=== PATIENT | female | born 1950 ===

== ENCOUNTER → 2018-05-29 | Outpatient (CLI) | payer MEDICARE, BC ==
[~2018-05-29] MED LIST: QUET25TA37; TRAM-411
[2018-05-29 11:58] LABS: Urine WBC None Seen /hpf (0 - 5)
[2018-05-29 12:36] LABS: Basophils # (auto) 0 uL; Basophils % (auto) 0.5 % (0.0-2.0); Eosinophils # (auto) 0.2 uL; Eosinophils % (auto) 3.8 % (0.0-7.0); Hematocrit 41.4 % (36.0-46.0); Hemoglobin 14.4 g/dL (12.2-16.2); Lymphocytes # (auto) 1.1 uL; Lymphocytes % (auto) 21.7 % (10.0-50.0); Mean Corpuscular Hemoglobin 32.9 pg (28.0-32.0); Mean Corpuscular Hgb Conc. 34.7 g/dL (32.0-36.0); Mean Corpuscular Volume 94.7 fL (80.0-100.0); Monocytes # (auto) 0.4 uL; Monocytes % (auto) 7.5 % (0.0-12.0); Neutrophils # (auto) 3.5 uL; Neutrophils % (auto) 66.5 % (37.0-80.0); Nucleated Red Blood Cells % 0.1 %; Platelet Count (auto) 183 10^3/uL (140-450); Red Blood Cells 4.37 10^6/uL (4.0-5.20); Red Cell Distribution Width 13.2 % (11.8-14.3); White Blood Cell 5.2 10^3/uL (4.4-10.8)
[2018-05-29 12:45] LABS: INR 0.93 (0.9-1.15)
[2018-05-29 13:01] LABS: Urine Bacteria NONE SEEN /hpf (None Seen); Urine Blood Negative /uL (Negative); Urine Specific Gravity 1.009 (1.001-1.035)
[2018-05-29 13:21] LABS: Albumin 3.6 g/dL (3.4-5.0); BUN/Creatinine Ratio 29.1; Bilirubin, Total 0.4 mg/dL (0.2-1.0); Calcium 9.1 mg/dL (8.5-10.1); Potassium 3.9 mmol/L (3.5-5.1); Total Protein 7.5 g/dL (6.4-8.2)
== END | disposition home or self-care (01) ==
LOC: LAB 11:06
PROVIDERS: ATTEND Orthopaedic Surgery
DX: G56.01 Carpal tunnel syndrome, right upper limb (principal); Z79.01 Long term (current) use of anticoagulants
CPT/HCPCS: 36415; 80053; 81001; 85025; 85610; 85730

== ENCOUNTER 2024-08-10 20:18 | Inpatient (IN) | payer BC, MEDICAID, MEDICARE ==
[~2024-08-10] VITALS: Ht 172.7 cm; Wt 61.0 kg
[~2024-08-10 20:18] MED LIST changes: +AZEL15GE EX; +LOSA100T33 PO; +METR0.7517 EX; +TEMA30CA PO
--- NOTE | 2024-08-10 20:28 | ED.PDOC ---
GI ASSESSMENT HPI Comments 74-year-old female brought in by EMS presents with a chief complaint of abdominal pain x onset 2 hours ago. Patient states that she went out of eat with her friends and had chicken wings, then developed abdominal pain, nausea, and vomiting. Patient was given 8mg of Zofran en route by EMS and is not actively vomiting. Patient reports her pain a 8/10 and cramping in nature. No blood in emesis. Patient's past medical history of solitary kidney, left kidney removed in her 20s. Patient has history of but or rupture status post surgical treatment, must self catheterize. Time Seen by MD: 20:19 Primary Care Provider: BRENDEN Gibson Notes: Medications, Allergies Allergies: Coded Allergies: Penicillin V (Verified Allergy, Unknown, 08/10/24) Sulfa Drugs (Verified Allergy, Unknown, 08/10/24) Tetracycline (Verified Allergy, Unknown, 08/10/24) Home Meds Reported Medications Quetiapine Fumerate (Seroquel) 25 Mg Tab, DAILY 03/28/12 Tramadol Hcl (Rybix Odt) 50 Mg Tab, DAILY 03/28/12 Information Source: Patient, Emergency Med Personnel Mode of Arrival: EMS Timing: Hours Duration: Since onset Prehospital treatment: None Quality: Cramping Vomitus: Bilious, Food Particles Stool: Normal Severity: Moderate Recent: Possible spoiled food Recent Hx of: None Pain Location: Epigastric Modifying Factors: Food Associated sign and symptoms: Nausea, Vomiting, Abdominal Pain Vital Signs Vital Signs Date Time Temp Pulse Resp B/P (MAP) Pulse Ox O2 Delivery O2 Flow Rate FiO2 08/11/24 00:05 73 12 142/88 08/11/24 00:00 100 08/10/24 23:26 98.3 98.3 Physical Exam General: Awake, alert and oriented. No acute distress. Skin: Skin in warm, dry and intact. Appropriate color for ethnicity. Nailbeds pink with no cyanosis. HEENT: The head is normocephalic and atraumatic. Conjunctivae are clear without exudates or hemorrhage. Sclera is non-icteric. EOM are intact. No signs of nystagmus. Eyelids are normal in appearance without swelling or lesions. Oral mucosa is pink and moist Neck: The neck is supple with normal range of motion. No JVD. Cardiac: Heart rate and rhythm are normal. No murmurs, gallops, or rubs are auscultated. Respiratory: No signs of respiratory distress. Lung sounds are clear in all lobes bilaterally without rales, ronchi, or wheezes. Abdominal: Abdomen is soft, with generalized tenderness, no guarding, rebound or rigidity. Bowel sounds are present and normoactive in all four quadrants. Extremities: Upper and lower extremities are atraumatic in appearance without deformity or edema. Neurological: The patient is awake, alert and oriented to person, place, and time with normal speech. Speech is clear. There is no facial asymmetry. Psychiatric: Appropriate mood and affect. Good judgement and insight. No visual or auditory hallucinations. Review of Systems: REVIEW OF SYSTEMS: No fever, no chills, or fatigue HEENT: No sore throat, earache, or congestion. No neck pain. Cardiac: No chest pain. No palpitations. Lungs: No shortness of breath or cough. GI: Positive for abdominal pain. Positive for nausea, vomiting, diarrhea. No blood in vomitus or stool. : No dysuria, frequency, or urgency. No hematuria. Musculoskeletal: No joint pain or swelling or edema. Skin: No rash or itching. Neuro: No headache, dizziness, weakness Past Medical History PAST MEDICAL HISTORY: High Lipids, HTN, Thyroid Family History Family History: Reviewed,noncontributory to illness, No family hx of Cancer, No family hx of Heart leander Social History Smoker: Non-Smoker, Quit Greater Than 1 Year Alcohol: Heavy Drugs: Denies Drug Use Lives In: Home EKG EKG : Pulse Rate (adult): 48 [place]: Normal Cardiac Rhythm: SB Block: None Hypertrophy: None ST: Normal Was a procedure done? Was a procedure done?: No GI differential Dx Differential Diagnosis: Other Other Differential Diagnosis Differential diagnoses considered include: Abdominal aortic aneurysm, OH, esophageal rupture, intestinal obstruction, mesenteric ischemia, perforated viscus or solid organ rupture, CHF with hepatomegaly, pneumonia, abscess, appendicitis, biliary disease, diverticulitis, gastritis, gastroenteritis, hepatitis, hernia, inflammatory bowel disease, pancreatitis, peptic ulcer disease, ureteral colic, constipation, GERD, irritable syndrome, abdominal wall pain, nonspecific abdominal pain, herpes zoster. X-Ray, Labs, Meds, VS Vital Signs Date Time Temp Pulse Resp B/P (MAP) Pulse Ox O2 Delivery O2 Flow Rate FiO2 08/11/24 00:05 73 12 142/88 08/11/24 00:00 73 12 142/88 (106) 100 08/10/24 23:35 59 12 158/79 08/10/24 23:26 98.3 59 29 149/80 (103) 99 98.3 08/10/24 20:33 98.2 52 20 107/56 (73) 98 08/10/24 20:28 48 08/10/24 20:20 48 Lab Test 08/11/24 00:30 08/10/24 23:04 08/10/24 21:04 08/10/24 21:00 Range/Units Urine Color Colorless Yellow Urine Clarity Turbid H Clear Urine pH 6.0 5.0-9.0 Urine Specific [place] 1.009 1.001-1.035 Urine Protein Trace H Negative Urine Ketones Trace Negative Urine Blood Negative Negative /uL Urine Nitrite 2+ H Negative Urine Bilirubin Negative Negative Urine Urobilinogen Normal Negative mg/dL Urine Leukocyte Esterase 1+ Negative /uL Urine RBC 1 0 - 4 /hpf Urine WBC 43 0 - 5 /hpf Urine Squamous Epithelial Cells Many <5 /hpf Urine Amorphous Crystals Few None Seen /hpf Urine Bacteria Few H None Seen /hpf Urine Glucose Normal Normal mg/dL Lactic Acid Level 6.4 *H 6.7 *H 0.4-2.0 mmol/L White Blood Count 7.9 4.4-10.8 10^3/uL Red Blood Count 4.81 4.0-5.20 10^6/uL Hemoglobin 15.8 12.2-16.2 g/dL Hematocrit 46.8 H 36.0-46.0 % Mean Corpuscular Volume 97.4 80.0-100.0 fL Mean Corpuscular Hemoglobin 32.8 H 28.0-32.0 pg Mean Corpuscular Hemoglobin Concent 33.7 32.0-36.0 g/dL Red Cell Distribution Width 13.4 11.8-14.3 % Platelet Count 176 140-450 10^3/uL Mean Platelet Volume 8.0 6.9-10.8 fL Neutrophils (%) (Auto) 70.6 37.0-80.0 % Lymphocytes (%) (Auto) 23.4 10.0-50.0 % Monocytes (%) (Auto) 3.9 0.0-12.0 % Eosinophils (%) (Auto) 1.6 0.0-7.0 % Basophils (%) (Auto) 0.5 0.0-2.0 % Neutrophils # (Auto) 5.6 1.6-8.6 10 ^3/uL Lymphocytes # (Auto) 1.9 0.4-5.4 10 ^3/uL Monocytes # (Auto) 0.3 0-1.3 10 ^3/uL Eosinophils # (Auto) 0.1 0-0.8 10 ^3/uL Basophils # (Auto) 0 0-0.2 10 ^3/uL Nucleated Red Blood Cells 0.2 % Sodium Level 143 136-145 mmol/L Potassium Level 3.3 L 3.5-5.1 mmol/L Chloride Level 107 98-107 mmol/L Carbon Dioxide Level 18 L 20-31 mmol/L Anion Gap 18 H 5-15 Blood Urea Nitrogen 7 L 9-23 mg/dL Creatinine 0.74 0.550-1.02 mg/dL Glomerular Filtration Rate Calc 85 >90 mL/min BUN/Creatinine Ratio 9.5 L 10.0-20.0 Serum Glucose 96 74-106 mg/dL Calcium Level 10.3 8.7-10.4 mg/dL Total Bilirubin 0.5 0.2-1.0 mg/dL Aspartate Amino Transferase (AST) 22 13-40 U/L Alanine Aminotransferase (ALT) 14 7-40 U/L Alkaline Phosphatase 63 46-116 U/L Total Protein 7.2 5.7-8.2 g/dL Albumin 4.6 3.2-4.8 g/dL Lipase 43 12-53 U/L Current Medications Medications (Trade) Dose Ordered Sig/Tay Route Start Time Stop Time Status Last Admin Morphine Sulfate 4 mg ONCE ONCE IV 08/10/24 20:30 08/10/24 20:31 DC 08/10/24 23:35 Sodium Chloride 1,000 ml @ 1,000 mls/hr Q1H ONCE IV 08/10/24 22:45 08/10/24 23:44 DC 08/10/24 23:35 Potassium Chloride 100 ml @ 50 mls/hr ONCE ONCE IV 08/10/24 22:45 08/11/24 00:44 DC 08/11/24 01:14 Metoclopramide HCl (Reglan Injection) 5 mg ONCE ONCE IV 08/10/24 23:30 08/10/24 23:31 DC 08/10/24 23:34 Diphenhydramine HCl (Benadryl Injection) 25 mg ONCE ONCE IV 08/10/24 23:30 08/10/24 23:31 DC 08/10/24 23:35 Sodium Chloride 1,000 ml @ 1,000 mls/hr Q1H ONCE IV 08/11/24 00:15 08/11/24 01:14 DC 08/11/24 01:14 Time of 1ST Reevaluation: 20:49 Reevaluation 1ST: Unchanged Time of 2ND Reevaluation: 00:16 (Pain has improved, however, 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 ) Reevaluation 2ND: Improved Patient Education/Counseling: Diagnosis, Treatment, Prognosis Family Education/Counseling: Diagnosis, Treatment, Prognosis, Other (Patient's at bedside) Additional Information The following tests were ordered, and results were reviewed by me: (labs, EKGS, xrays, etc) Additional information was gathered from interviewing the following independent historians: EMS gave initial report. I reviewed and agreed with the following test results read by other providers: (xray, CT, US) I discussed treatments and results with medical personnel and: (consultants, fam, etc) Departure 1 Departure Time of Disposition: 04:17 Impression: Primary Impression: Abdominal pain Additional Impressions: Nausea vomiting and diarrhea Small bowel obstruction Disposition: ADMITTED INPATIENT Condition: Stable Comments Number & Complexity of Problems Addressed Patient presented with abdominal pain, nausea, vomiting, diarrhea with a history of solitary kidney. There was concern for compromised renal function, dehydration, considered no IV contrast given solitary kidney. Repeat CT scan with IV contrast was ordered due to elevated lactic acid, continued abdominal tenderness. Small-bowel obstruction observed, NG tube placed. Extensive evaluation was performed to identify or rule out: All perforation, bowel obstruction, ischemic bowel, acute coronary syndrome, appendicitis, cholecystitis, acute pancreatitis. Amount and/or Complexity of Data to be Reviewed/Analyzed Tests reviewed: See labs and imaging Documents reviewed: Previous records available for review Independent historian: EMS, patient's at bedside Independent interpretation of tests: Agree with radiologist's interpretation of CT scan, EKG Discussion of management or test interpretation with external physician/other qualified health career services officer: N/A Risk of Complications and/or Morbidity or Mortality of Patient Management Patient was at high risk of morbidity from additional diagnostic testing or treatment Decision regarding emergency major surgery: There was concern for acute surgical abdomen Decision was made to hospitalize the patient for ongoing inpatient care. Parenteral controlled substances-IV morphine Critical Care Note Critical Care Time?: No Stability Stability form required: No I personally scribed for VIVIANE HEWITT MD ([email or web address]) on 08/10/24 at 20:28. Electronically submitted by Gerardo Garcia ([email or web address]). I personally scribed for VIVIANE HEWITT MD ([email or web address]) on 08/11/24 at 00:16. Electronically submitted by Gerardo Garcia ([email or web address]). VIVIANE HEWITT MD Aug 10, 2024 20:28
[2024-08-10 21:18] LABS: Basophils # (auto) 0 10 ^3/uL (0-0.2); Basophils % (auto) 0.5 % (0.0-2.0); Eosinophils # (auto) 0.1 10 ^3/uL (0-0.8); Eosinophils % (auto) 1.6 % (0.0-7.0); Hematocrit 46.8 % (36.0-46.0); Hemoglobin 15.8 g/dL (12.2-16.2); Lymphocytes # (auto) 1.9 10 ^3/uL (0.4-5.4); Lymphocytes % (auto) 23.4 % (10.0-50.0); Mean Corpuscular Hemoglobin 32.8 pg (28.0-32.0); Mean Corpuscular Hgb Conc. 33.7 g/dL (32.0-36.0); Mean Corpuscular Volume 97.4 fL (80.0-100.0); Monocytes # (auto) 0.3 10 ^3/uL (0-1.3); Monocytes % (auto) 3.9 % (0.0-12.0); Neutrophils # (auto) 5.6 10 ^3/uL (1.6-8.6); Neutrophils % (auto) 70.6 % (37.0-80.0); Nucleated Red Blood Cells % 0.2 %; Platelet Count (auto) 176 10^3/uL (140-450); Red Blood Cells 4.81 10^6/uL (4.0-5.20); Red Cell Distribution Width 13.4 % (11.8-14.3); White Blood Cell 7.9 10^3/uL (4.4-10.8)
[2024-08-10 21:32] LABS: Alanine Aminotransferase 14 U/L (7-40); Albumin 4.6 g/dL (3.2-4.8); Alkaline Phosphatase 63 U/L (46-116); Anion Gap 18 (5-15); Aspartate Aminotransferase 22 U/L (13-40); BUN/Creatinine Ratio 9.5 (10.0-20.0); Bilirubin, Total 0.5 mg/dL (0.2-1.0); Calcium 10.3 mg/dL (8.7-10.4); Glucose 96 mg/dL (74-106); Lipase 43 U/L (12-53); Sodium 143 mmol/L (136-145); Total Protein 7.2 g/dL (5.7-8.2)
[2024-08-10 21:34] LABS: Lactic Acid w/Reflex 6.7 mmol/L (0.4-2.0)
[2024-08-10 21:34] LABS: Blood Urea Nitrogen 7 mg/dL (9-23); Carbon Dioxide 18 mmol/L (20-31); Chloride 107 mmol/L (98-107); Potassium 3.3 mmol/L (3.5-5.1)
--- NOTE | 2024-08-10 22:14 | DVH ---
Exam: CT CT AB PEL WO CON-NO ORAL OR IV History: Abdominal pain, nausea, vomiting, diarrhea Comparison Study: None available at time of dictation. TECHNIQUE: Multidetector CT of the abdomen was performed from lung bases to pubic symphysis. Imaging was performed without IV contrast. Axial, coronal and sagittal multiplanar reformats were obtained fr om the axial data set by the technologist. Radiation Dose Information: CT Dose: CTDI volume is 11.48 mGy. Dose-length product is 578.59 mGy*cm FINDINGS: Evaluation of solid organs is limited due to lack of intravenous contrast use. Findings: Lung Bases: No acute or significant lung base finding. Normal heart size. No pleural or pericardial effusion. Liver: The liver is normal in size. No focal lesions. Gallbladder and Biliary Tree: Unremarkable Spleen: Unremarkable Pancreas: The pancreas is grossly normal in appearance. Adrenal Glands: Unremarkable Kidneys: Only right kidney is visualized. Left kidney is not visualized and there are no surgical cli ps seen. Bladder: Grossly unremarkable for degree of distention. Bowel: The stomach is grossly normal in appearance. Small bowel and colon are normal in caliber and d istribution. The appendix is not visualized; however, no secondary findings of acute appendicitis id entified. Ascites: Absent Lymphadenopathy: No mesenteric, retroperitoneal or periportal lymphadenopathy. Abdominal Wall and Mesentery: Unremarkable. Vasculature: The visualized abdominal aorta is normal in size and caliber. Evaluation of abdominal a nd pelvic vessels is limited due to lack of intravenous contrast. Pelvic Organs: Unremarkable Musculoskeletal: No aggressive focal bony lesions, acute fractures or dislocation. Soft tissues: Unremarkable IMPRESSION: 1. No calcifications are noted in the gallbladder. 2. Left kidney is not visualized and there are no surgical clips to suggest surgical removal. Radiation optimization: All CT scans at this facility use at least one of these dose optimization te chniques: automated exposure control mA and/or kV adjustment per patient size (includes targeted exa ms where dose is matched to clinical indication) or iterative reconstruction.
[2024-08-10] MEDS: METOCLOPRAMIDE HCL 5MG/ml INJ 2ml VIAL IV ONE (23:34)
[2024-08-10] MEDS: MORPHINE SULFATE 4 MG/ML SYR/VIAL IV ONE (23:35)
[2024-08-10] MEDS: SODIUM CHLORIDE 0.9% 1,000 ML IV ONE (23:35)
[2024-08-10] MEDS: diphenhdrAMINE HCL 50 MG/1 ML VL IV ONE (23:35)
[2024-08-11] MEDS ORDERED: ACETAMINOPHEN 325 MG TAB PO PRN (01:00)
[2024-08-11] MEDS ORDERED: HYDROcodone-ACET 5/325MG TAB PO PRN (01:00)
[2024-08-11] MEDS: SODIUM CHLORIDE 0.9% 1,000 ML IV ONE (01:14)
[2024-08-11] MEDS: POTASSIUM CHL 20MEQ/100ML 100 ML IV ONE (01:14)
[2024-08-11] MEDS: IOHEXOL 300 MG/ML 100ML BOTTLE IJ ONE (01:24)
--- NOTE | 2024-08-11 01:28 | DVH ---
Exam: CT CT AB PEL WITH IV CON ONLY History: CT angiogram, rule out ischemic bowel COMPARISON: CT CT AB PEL WO CON-NO ORAL OR IV on DOS: 08/10/24 Technique: Multidetector spiral CT of the abdomen and pelvis was performed from lung bases to pubic s ymphysis. Intravenous contrast was administered during this examination. Portal venous imaging was obtained. Axial, coronal and sagittal multiplanar reformats were performed by the technologist on a separate workstation. Radiation Dose : 1. Abdomen/Pelvis: CTDIvol 11.7 mGy, DLP 1293.86 mGy*cm. CONTRAST: Type of contrast: Omnipaque 300 Contrast injected: 100 ml Findings: Lung Bases: No acute or significant lung base finding. Normal heart size. No pleural or pericardial effusion. Liver: The liver is normal in size. No focal lesions. Normal hepatic vascular enhancement. Gallbladder and Biliary Tree: Unremarkable Spleen: Unremarkable Pancreas: The pancreas is normal in appearance without focal lesions or abnormal enhancement. Adrenal Glands: Unremarkable Kidneys: Unremarkable right kidney. No hydronephrosis. 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 Bladder: Collapsed surrounding Monsivais catheter. Bowel: The stomach is grossly normal in appearance. Multiple abnormally dilated loops of bowel are se en throughout the abdomen with probable transition point in the lower midline pelvis, suggestive of s mall-bowel obstruction. No pneumatosis or portal venous gas. The appendix is not visualized; however, no secondary findings of acute appendicitis identified. Ascites: Absent Lymphadenopathy: No mesenteric, retroperitoneal or periportal lymphadenopathy. Abdominal Wall and Mesentery: Unremarkable. Vasculature: The visualized abdominal aorta is normal in size and caliber. Abdominal and pelvic vess els demonstrate normal enhancement. Pelvic Organs: Urinary bladder is collapsed surrounding Monsivais catheter. Musculoskeletal: No aggressive focal bony lesions, acute fractures or dislocation. IMPRESSION: 1. Small-bowel obstruction with probable transition point in the lower midline pelvis. No drainable fluid collection. No free air. No evidence of bowel ischemia. Radiation optimization: All CT scans at this facility use at least one of these dose optimization melvi hniques: automated exposure control mA and/or kV adjustment per patient size (includes targeted exam s where dose is matched to clinical indication) or iterative reconstruction.
[2024-08-11 02:47] LABS: Urine Amorphous Crystal FEW /hpf (None Seen); Urine Bacteria FEW /hpf (None Seen); Urine Blood Negative /uL (Negative); Urine Clarity Turbid (Clear); Urine Color Colorless (Yellow); Urine Protein, UAD TRACE (Negative); Urine Specific Gravity 1.009 (1.001-1.035); Urine Urobilinogen Normal (Negative); Urine WBC 43 /hpf (0 - 5)
[2024-08-11] MEDS: levoFLOXacin 500MG 100 ML IV ONE (02:56)
--- NOTE | 2024-08-11 04:29 | DVHHP2 ---
History of Present Illness Reason for Visit: Abdominal pain History of Present Illness 74-year-old female presents for evaluation of abdominal pain. Patient reports a one day history of diffuse abdominal pain which is cramp like in nature. She states his symptoms developed shortly after eating chicken wings. She associates episodes of nausea with vomiting. Denies diarrhea. No other acute complaints reported. Past Medical History Hypertension, dyslipidemia and hypothyroid Past Surgical History Denies Family History Noncontributory Smoke: No ALCOHOL: none Drugs: None Lives: with Family Review of Systems Review of Systems Review of systems are currently negative otherwise addressed in HPI. Allergies: Coded Allergies: Penicillin V (Verified Allergy, Unknown, 08/10/24) Sulfa Drugs (Verified Allergy, Unknown, 08/10/24) Tetracycline (Verified Allergy, Unknown, 08/10/24) Medications Current Medications Medications Dose Ordered Sig/Tay Route Start Time Stop Time Status Last Admin Dose Admin Metronidazole 100 ml @ 100 mls/hr Q8HR IV 08/11/24 06:00 Acetaminophen/ Hydrocodone Bitart 1 tab Q4HP PRN PO 08/11/24 01:00 Ondansetron HCl 4 mg Q4HP PRN IV 08/11/24 01:00 Acetaminophen 650 mg Q6HP PRN PO 08/11/24 01:00 Morphine Sulfate 2 mg Q6HPRN PRN IV 08/11/24 01:00 Exam Vital Signs Vital Signs Date Time Temp Pulse Resp B/P (MAP) Pulse Ox O2 Delivery O2 Flow Rate FiO2 08/11/24 03:00 73 17 152/80 (104) 100 08/10/24 23:26 98.3 98.3 Exam Gen: 74-year-old female in mild distress Skin: Warm, dry, normal color and texture, no rash. HEENT: Normocephalic atraumatic, mucous membranes moist and pink. Neck: Cervical and supraclavicular nodes normal without enlargement, trachea is midline, thyroid gland is normal without masses. Pulmonary: Clear to auscultation and percussion bilaterally. Cardiac: Regular rate and rhythm. No murmur Abdomen: Soft, diffuse tenderness, nondistended, bowel sounds present all 4 amarjit drants, no guarding, no rigidity, no organomegaly. Extremities: No cyanosis, clubbing, no edema Neuro: Cranial nerves II through XII grossly intact, normal affect and speech, no focal motor deficits. Labs/Xrays ORDERING PHYSICIAN: VIVIANE HEWITT MD PROCEDURE(s): ABPLIV - CT AB PEL WITH IV CON ONLY REASON: CT angiogram, rule out ischemic bowel ORDER NUMBER(s): [id number], ACCESSION NUMBER(s): [id number] Exam: CT CT AB PEL WITH IV CON ONLY History: CT angiogram, rule out ischemic bowel COMPARISON: CT CT AB PEL WO CON-NO ORAL OR IV on DOS: 08/10/24 Technique: Multidetector spiral CT of the abdomen and pelvis was performed from lung bases to pubic symphysis. Intravenous contrast was administered during this examination. Portal venous imaging was obtained. Axial, coronal and sagittal multiplanar reformats were performed by the technologist on a separate workstation. Radiation Dose : 1. Abdomen/Pelvis: CTDIvol 11.7 mGy, DLP 1293.86 mGy*cm. CONTRAST: Type of contrast: Omnipaque 300 Contrast injected: 100 ml Findings: Lung Bases: No acute or significant lung base finding. Normal heart size. No pleural or pericardial effusion. Liver: The liver is normal in size. No focal lesions. Normal hepatic vascular enhancement. Gallbladder and Biliary Tree: Unremarkable Spleen: Unremarkable Pancreas: The pancreas is normal in appearance without focal lesions or abnormal enhancement. Adrenal Glands: Unremarkable Kidneys: Unremarkable right kidney. No hydronephrosis. 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 Bladder: Collapsed surrounding Monsivais catheter. Bowel: The stomach is grossly normal in appearance. Multiple abnormally dilated loops of bowel are seen throughout the abdomen with probable transition point in the lower midline pelvis, suggestive of small-bowel obstruction. No pneumatosis or portal venous gas. The appendix is not visualized; however, no secondary findings of acute appendicitis identified. Ascites: Absent Lymphadenopathy: No mesenteric, retroperitoneal or periportal lymphadenopathy. Abdominal Wall and Mesentery: Unremarkable. Vasculature: The visualized abdominal aorta is normal in size and caliber. Abdominal and pelvic vessels demonstrate normal enhancement. Pelvic Organs: Urinary bladder is collapsed surrounding Monsivais catheter. Musculoskeletal: No aggressive focal bony lesions, acute fractures or dislocation. IMPRESSION: 1. Small-bowel obstruction with probable transition point in the lower midline pelvis. No drainable fluid collection. No free air. No evidence of bowel ischemia. Radiation optimization: All CT scans at this facility use at least one of these dose optimization techniques: automated exposure control mA and/or kV adjustment per patient size (includes targeted exams where dose is matched to clinical indication) or iterative reconstruction. Labs Test 08/11/24 03:15 08/11/24 00:30 08/10/24 21:00 Range/Units Lactic Acid Level 1.6 0.4-2.0 mmol/L Urine Color Colorless Yellow Urine Clarity Turbid H Clear Urine pH 6.0 5.0-9.0 Urine Specific [place] 1.009 1.001-1.035 Urine Protein Trace H Negative Urine Ketones Trace Negative Urine Blood Negative Negative /uL Urine Nitrite 2+ H Negative Urine Bilirubin Negative Negative Urine Urobilinogen Normal Negative mg/dL Urine Leukocyte Esterase 1+ Negative /uL Urine RBC 1 0 - 4 /hpf Urine WBC 43 0 - 5 /hpf Urine Squamous Epithelial Cells Many <5 /hpf Urine Amorphous Crystals Few None Seen /hpf Urine Bacteria Few H None Seen /hpf Urine Glucose Normal Normal mg/dL White Blood Count 7.9 4.4-10.8 10^3/uL Red Blood Count 4.81 4.0-5.20 10^6/uL Hemoglobin 15.8 12.2-16.2 g/dL Hematocrit 46.8 H 36.0-46.0 % Mean Corpuscular Volume 97.4 80.0-100.0 fL Mean Corpuscular Hemoglobin 32.8 H 28.0-32.0 pg Mean Corpuscular Hemoglobin Concent 33.7 32.0-36.0 g/dL Red Cell Distribution Width 13.4 11.8-14.3 % Platelet Count 176 140-450 10^3/uL Mean Platelet Volume 8.0 6.9-10.8 fL Neutrophils (%) (Auto) 70.6 37.0-80.0 % Lymphocytes (%) (Auto) 23.4 10.0-50.0 % Monocytes (%) (Auto) 3.9 0.0-12.0 % Eosinophils (%) (Auto) 1.6 0.0-7.0 % Basophils (%) (Auto) 0.5 0.0-2.0 % Neutrophils # (Auto) 5.6 1.6-8.6 10 ^3/uL Lymphocytes # (Auto) 1.9 0.4-5.4 10 ^3/uL Monocytes # (Auto) 0.3 0-1.3 10 ^3/uL Eosinophils # (Auto) 0.1 0-0.8 10 ^3/uL Basophils # (Auto) 0 0-0.2 10 ^3/uL Nucleated Red Blood Cells 0.2 % Sodium Level 143 136-145 mmol/L Potassium Level 3.3 L 3.5-5.1 mmol/L Chloride Level 107 98-107 mmol/L Carbon Dioxide Level 18 L 20-31 mmol/L Anion Gap 18 H 5-15 Blood Urea Nitrogen 7 L 9-23 mg/dL Creatinine 0.74 0.550-1.02 mg/dL Glomerular Filtration Rate Calc 85 >90 mL/min BUN/Creatinine Ratio 9.5 L 10.0-20.0 Serum Glucose 96 74-106 mg/dL Calcium Level 10.3 8.7-10.4 mg/dL Total Bilirubin 0.5 0.2-1.0 mg/dL Aspartate Amino Transferase (AST) 22 13-40 U/L Alanine Aminotransferase (ALT) 14 7-40 U/L Alkaline Phosphatase 63 46-116 U/L Total Protein 7.2 5.7-8.2 g/dL Albumin 4.6 3.2-4.8 g/dL Lipase 43 12-53 U/L Assessment/Plan Assessment/Plan Assessment Acute abdominal pain Small-bowel obstruction Plan Admit the patient to [facility] to the hospitalist Surgical, line small-bowel follow-through pending NPO Maintenance IV fluids Continue treatment per orders Plan discussed with: Patient My Orders Orders - LAURA GIL AGACNP Procedure Category Date Status Time Admit ADMIT 08/11/24 Transmitted 00:31 Metronidazole PHA 08/11/24 In Process 500mg/100ml (Flagyl 06:00 Hydrocodone-Acet PHA 08/11/24 In Process 5/325mg Tab ([place] 01:00 Ondansetron Hcl PHA 08/11/24 In Process (Zofran) 01:00 Complete Blood Count LAB 08/12/24 Verified 04:00 Comprehensive LAB 08/12/24 Verified Metabolic Panel 04:00 Condition: Stable HERLINDA 08/11/24 In Process 00:58 Acetaminophen Tablet PHA 08/11/24 In Process (Tylenol Tablet) 01:00 Bedrest With Bathroom HERLINDA 08/11/24 Verified Privileg 00:58 Morphine Sulfate PHA 08/11/24 In Process Injection 01:00 Npo (Nothing By DIET 08/11/24 Transmitted Mouth) Diet Breakfast * Surgical Consult CONS 08/11/24 Transmitted Small Bowel Series-W XY 08/11/24 Transmitted Gastrogra 04:24 Date of Service: Aug 10, 2024 Billing Provider: LAURA GIL Common Visit Codes: [id number] INP/OBS CARE (MOD) LAURA GIL Aug 11, 2024 04:29
[2024-08-11] MEDS: metroNIDAZOLE 500MG/100ML 100 ML IV SCH (06:46)
--- NOTE | 2024-08-11 06:47 | ECG ---
[facility] Test Date: 2024-08-10 Test Time: 20:20:35 Pat Name: EMILY MENCHACA Department: ED Room: 0249 Gender: F [employer]person [employer]: ANYI : 1950 Requested By: VIVIANE HEWITT Order Number: [id number] Reading MD: Kojo Velasco Measurements Intervals [place] Rate: 48 P: 78 [place]: 165 QRS: 69 QRSD: 100 T: 64 QT: 535 QTc: 479 Interpretive Statements Sinus bradycardia Electronically Signed On 08-13-2024 16:12:26 PST by Kojo Velasco Please click the below link to view image of tracing.
--- NOTE | 2024-08-11 09:31 | DVHPN2 ---
Assessment/Plan Assessment/Plan Progress note Subjective 74-year-old female with prior surgical history of 2 , 2 bladder rupture and reconstruction last 15 years ago, nephrectomy 15 years ago admitted for abdominal pain, found to have SBO, HAGMA, UTI and lactic acidosis. Patient is seen by me today during rounds Instead of abdominal pain improving, last bowel movement on Sunday prior to pain, last episode of vomiting while in the hospital on Sunday Objective Physical exam Alert, oriented x3 PERRLA N[address] in place No JVD Clear breath sounds bilaterally S1-S2 regular rate and rhythm no murmur Abdomen soft, mild periumbilical tenderness, no rebound, no guarding, BS normal Moving all four extremities No lower extremity edema Lab Lact 6 -> 1.8 K 3.3 Gap [address] AP s/p nephrectomy, SBO CXR clear, NGT in place Assessment and plan Small-bowel obstruction Status post nephrectomy Status post bowel reconstruction Urinary retention requiring self catheterization Lactic acidosis, resolved HAGMA, resolved Hypokalemia Hypertension UTI NPO Surgical consult Place NG tube Gastrografin and bowel series Magnesium oxide, lactobacillus and simethicone if bowel series negative Continue with home levothyroxine, sertraline Restart losartan Follow urine culture Ceftriaxone, Flagyl EKG for QTc, if normal can do PRN zofran Replete electrolytes Diet NPO DVT prophylaxis Lovenox Plan discussed with: Patient Date of Service: Aug 11, 2024 Billing Provider: MIGUEL RAMIREZ MD Common Visit Codes: [id number] INP/OBS CARE(HIGH) MIGUEL RAMIREZ MD Aug 11, 2024 09:31
[2024-08-11 10:03] VITALS: PULSE 72; RESP 16; O2SAT 96
--- NOTE | 2024-08-11 10:05 | DVH ---
CHEST RADIOGRAPH Indication: NG TUBE PLACEMENT Technique: Single frontal view of the chest was obtained Comparison: None FINDINGS: Lines and Tubes: NG tube tip in the stomach. Lungs: No focal consolidation. Pleura: No effusion. No pneumothorax. Cardiomediastinal contours: Unremarkable Bones: No acute osseous abnormality. IMPRESSION: No acute cardiopulmonary disease.
[2024-08-11] MEDS: POTASSIUM CHLORIDE 40 MEQ in D5W/LACTATED RINGERS 1,000 ML IV SCH (11:37)
[2024-08-11] MEDS: GASTROGRAFIN 120 ML SOL ONE (11:57)
[2024-08-11 18:56] VITALS: BP 144/81; PULSE 69; RESP 18; TEMP 98; O2SAT 95
[2024-08-11] MEDS ORDERED: LEVO150T10 PO (18:56)
[2024-08-11] MEDS ORDERED: SERT-206 PO (18:56)
[2024-08-11 19:00] VITALS: PULSE 69; RESP 18; O2SAT 95
[2024-08-11 20:00] VITALS: PULSE 72; RESP 17; O2SAT 92
[2024-08-11 21:00] VITALS: BP 153/95; PULSE 72; RESP 17; TEMP 97.9; O2SAT 92
[2024-08-12] VITALS (8 sets, daily range): BP systolic 132–165; BP diastolic 80–91; PULSE 63–90; RESP 16–20; TEMP 97.2–99; O2SAT 92–94
--- NOTE | 2024-08-12 | DVH ---
Procedure: XY SMALL BOWEL SERIES-W GASTROGRA Exam Date: 08/11/2024 12:16 PM Reason for study/Clinical History: SBO Comparison Study: None available at time of dictation. Technique: Single contrast small bowel series performed. Findings: Initial international organizer view of the abdomen and pelvis appears demonstrates no acute process. Contrast is identified within the colon by 1 hour . This represents a normal small bowel transit sean e. Small bowel loops are normal in size. Normal mucosal pattern. No evidence of small bowel obstructi on, stricture, or mucosal abnormality. The terminal ileum is well visualized and is unremarkable. IMPRESSION: Normal small bowel series. END IMPRESSION:
[2024-08-12] MEDS: MORPHINE SULFATE INJ 2 MG/ml SYRG IV PRN (03:24)
[2024-08-12 06:37] LABS: Basophils # (auto) 0 10 ^3/uL (0-0.2); Basophils % (auto) 0.4 % (0.0-2.0); Eosinophils # (auto) 0.1 10 ^3/uL (0-0.8); Eosinophils % (auto) 1.7 % (0.0-7.0); Hematocrit 39.5 % (36.0-46.0); Hemoglobin 13.4 g/dL (12.2-16.2); Lymphocytes # (auto) 0.9 10 ^3/uL (0.4-5.4); Lymphocytes % (auto) 14.3 % (10.0-50.0); Mean Corpuscular Hemoglobin 32.7 pg (28.0-32.0); Mean Corpuscular Hgb Conc. 33.9 g/dL (32.0-36.0); Mean Corpuscular Volume 96.4 fL (80.0-100.0); Monocytes # (auto) 0.4 10 ^3/uL (0-1.3); Monocytes % (auto) 6.1 % (0.0-12.0); Neutrophils % (auto) 77.5 % (37.0-80.0); Platelet Count (auto) 125 10^3/uL (140-450); Red Blood Cells 4.09 10^6/uL (4.0-5.20); Red Cell Distribution Width 13.1 % (11.8-14.3); White Blood Cell 6.5 10^3/uL (4.4-10.8)
[2024-08-12 06:51] LABS: Albumin 3.6 g/dL (3.2-4.8); Alkaline Phosphatase 51 U/L (46-116); Anion Gap 10 (5-15); Aspartate Aminotransferase 16 U/L (13-40); BUN/Creatinine Ratio 13.1 (10.0-20.0); Bilirubin, Total 0.8 mg/dL (0.2-1.0); Blood Urea Nitrogen 8 mg/dL (9-23); Calcium 9.6 mg/dL (8.7-10.4); Carbon Dioxide 25 mmol/L (20-31); Chloride 111 mmol/L (98-107); Glucose 94 mg/dL (74-106); Potassium 3.8 mmol/L (3.5-5.1); Sodium 146 mmol/L (136-145); Total Protein 5.6 g/dL (5.7-8.2)
[2024-08-12 06:53] LABS: Alanine Aminotransferase 9 U/L (7-40)
[2024-08-12] MEDS ORDERED: cefTRIAXone 1GM/50ML D5W 50 ML IV SCH (09:00)
--- NOTE | 2024-08-12 13:56 | DVHPN2 ---
Assessment/Plan Assessment/Plan Progress note Subjective 74-year-old female with prior surgical history of 2 , 2 bladder rupture and reconstruction last 15 years ago, nephrectomy 15 years ago admitted for abdominal pain, found to have SBO, HAGMA, UTI and lactic acidosis. Patient is seen by me today during rounds had 2 BM overnight, still with abd pain. Pending surgery consult Objective Physical exam Alert, oriented x3 PERR[address] N[address] in place No JVD Clear breath sounds bilaterally S1-S2 regular rate and rhythm no murmur Abdomen soft, slightly distended, mild periumbilical tenderness, no rebound, no guarding, BS normal Moving all four extremities No lower extremity edema Lab Lact 6 -> 1.8 K 3.3 Gap 18 Bicar[address] AP s/p nephrectomy, SBO CXR clear, NGT in place Assessment and plan Small-bowel obstruction Status post nephrectomy Status post bowel reconstruction Urinary retention requiring self catheterization Lactic acidosis, resolved HAGMA, resolved Hypokalemia Hypertension UTI NPO Surgical consult Place NG tube Gastrografin and bowel series Magnesium oxide, lactobacillus and simethicone if bowel series negative Continue with home levothyroxine, sertraline Restart losartan Follow urine culture Ceftriaxone, Flagyl EKG for QTc, if normal can do PRN zofran Replete electrolytes Diet NPO DVT prophylaxis Lovenox Plan discussed with: Patient, Spouse My Orders Orders - MIGUEL RAMIREZ MD Procedure Category Date Status Time Polyethylene Glycol PHA 08/13/24 Logged 17g Powder (Miralax 10:00 Date of Service: Aug 12, 2024 Billing Provider: MIGUEL RAMIREZ MD Common Visit Codes: [id number] INP/OBS CARE(HIGH) MIGUEL RAMIREZ MD Aug 12, 2024 13:56
[2024-08-12] MEDS: POLYETHYLENE GLYCOL 17 GM PWDR PO SCH (14:53)
[2024-08-13] VITALS (7 sets, daily range): BP systolic 119–154; BP diastolic 76–92; PULSE 68–74; RESP 18–20; TEMP 97.7–98.8; O2SAT 94–96
[2024-08-13 06:33] LABS: Anion Gap 11 (5-15); Carbon Dioxide 25 mmol/L (20-31); Potassium 3.7 mmol/L (3.5-5.1); Sodium 143 mmol/L (136-145)
[2024-08-13 06:35] LABS: Calcium 9.5 mg/dL (8.7-10.4)
[2024-08-13 06:39] LABS: Glucose 74 mg/dL (74-106)
[2024-08-13 06:40] LABS: BUN/Creatinine Ratio 15.9 (10.0-20.0); Basophils # (auto) 0 10 ^3/uL (0-0.2); Basophils % (auto) 0.3 % (0.0-2.0); Blood Urea Nitrogen 10 mg/dL (9-23); Eosinophils # (auto) 0.2 10 ^3/uL (0-0.8); Eosinophils % (auto) 2.9 % (0.0-7.0); Hematocrit 40.3 % (36.0-46.0); Hemoglobin 13.8 g/dL (12.2-16.2); Lymphocytes # (auto) 1.1 10 ^3/uL (0.4-5.4); Lymphocytes % (auto) 16.7 % (10.0-50.0); Mean Corpuscular Hemoglobin 32.9 pg (28.0-32.0); Mean Corpuscular Hgb Conc. 34.1 g/dL (32.0-36.0); Mean Corpuscular Volume 96.5 fL (80.0-100.0); Monocytes # (auto) 0.4 10 ^3/uL (0-1.3); Monocytes % (auto) 5.6 % (0.0-12.0); Neutrophils # (auto) 4.9 10 ^3/uL (1.6-8.6); Neutrophils % (auto) 74.5 % (37.0-80.0); Nucleated Red Blood Cells % 0.1 %; Platelet Count (auto) 125 10^3/uL (140-450); Red Blood Cells 4.18 10^6/uL (4.0-5.20); Red Cell Distribution Width 12.9 % (11.8-14.3); White Blood Cell 6.6 10^3/uL (4.4-10.8)
[2024-08-13 06:45] LABS: Chloride 107 mmol/L (98-107)
--- NOTE | 2024-08-13 16:08 | DVHPN2 ---
Assessment/Plan Assessment/Plan Progress note Subjective 74-year-old female with prior surgical history of 2 , 2 bladder rupture and reconstruction last 15 years ago, nephrectomy 15 years ago admitted for abdominal pain, found to have SBO, HAGMA, UTI and lactic acidosis. Patient is seen by me today during rounds Continues to have bowel movement, able to tolerate liquid diet we will escalate today. Abdominal pain resolved NGT removed Objective Physical exam Alert, oriented x3 PERR[address] in place No JVD Clear breath sounds bilaterally S1-S2 regular rate and rhythm no murmur Abdomen soft, slightly distended, mild periumbilical tenderness, no rebound, no guarding, BS normal Moving all four extremities No lower extremity edema Lab Lact 6 -> 1.8 K 3.3 Gap 18 B[address] AP s/p nephrectomy, SBO CXR clear, NGT in place Assessment and plan Small-bowel obstruction Status post nephrectomy Status post bowel reconstruction Urinary retention requiring self catheterization Lactic acidosis, resolved HAGMA, resolved Hypokalemia Hypertension UTI NPO Surgical consult NGT removed Gastrografin and bowel series Magnesium oxide, lactobacillus and simethicone if bowel series negative Continue with home levothyroxine, sertraline Restart losartan Follow urine culture Ceftriaxone, Flagyl EKG for QTc, if normal can do PRN zofran Replete electrolytes Diet advanced as tolerated DVT prophylaxis Lovenox Plan discussed with: Patient My Orders Orders - MIGUEL RAMIREZ MD Procedure Category Date Status Time Clear Liq Diet DIET 08/13/24 Transmitted Breakfast Cardiac DIET 08/13/24 Verified Diet-2gna,Lofat,Lochol Dinner Date of Service: Aug 13, 2024 Billing Provider: MIGUEL RAMIREZ MD Common Visit Codes: [id number] INP/OBS CARE(HIGH) MIGUEL RAMIREZ MD Aug 13, 2024 16:08
[2024-08-13] MEDS: LOSARTAN POTASSIUM 50 MG TAB PO ONE (16:15)
[2024-08-13] MEDS: SERTRALINE HCL 50 MG TAB PO ONE (16:15)
[2024-08-13] MEDS: LEVOTHYROXINE SODIUM 50 MCG TAB PO ONE (16:15)
[2024-08-13] MEDS: ONDANSETRON HCL 4 MG/2 ML VIAL IV PRN (17:24)
[2024-08-13] MEDS: MELATONIN 5 MG TAB PO ONE (23:15)
[2024-08-14 01:00] VITALS: BP 134/73; PULSE 63; RESP 18; TEMP 98.2; O2SAT 98
[2024-08-14 05:00] VITALS: BP 141/77; PULSE 65; RESP 18; TEMP 98.6; O2SAT 96
[2024-08-14 09:00] VITALS: BP 130/80; PULSE 66; RESP 18; TEMP 98; O2SAT 96
[2024-08-14] MEDS ORDERED: POLY335015 PO (09:04)
[2024-08-14] MEDS ORDERED: CEPH250C PO (09:06)
--- NOTE | 2024-08-14 09:08 | DVHDS2 ---
Discharge Summary Date of Admission Aug 11, 2024 at 00:32 Date of Discharge: Aug 14, 2024 Labs/Diagnostic Data: Laboratory Results Test 08/13/24 05:54 08/12/24 04:52 08/11/24 03:15 08/11/24 00:30 White Blood Count 6.6 10^3/uL (4.4-10.8) Red Blood Count 4.18 10^6/uL (4.0-5.20) Hemoglobin 13.8 g/dL (12.2-16.2) Hematocrit 40.3 % (36.0-46.0) Mean Corpuscular Volume 96.5 fL (80.0-100.0) Mean Corpuscular Hemoglobin 32.9 pg (28.0-32.0) Mean Corpuscular Hemoglobin Concent 34.1 g/dL (32.0-36.0) Red Cell Distribution Width 12.9 % (11.8-14.3) Platelet Count 125 10^3/uL (140-450) Mean Platelet Volume 8.1 fL (6.9-10.8) Neutrophils (%) (Auto) 74.5 % (37.0-80.0) Lymphocytes (%) (Auto) 16.7 % (10.0-50.0) Monocytes (%) (Auto) 5.6 % (0.0-12.0) Eosinophils (%) (Auto) 2.9 % (0.0-7.0) Basophils (%) (Auto) 0.3 % (0.0-2.0) Neutrophils # (Auto) 4.9 10 ^3/uL (1.6-8.6) Lymphocytes # (Auto) 1.1 10 ^3/uL (0.4-5.4) Monocytes # (Auto) 0.4 10 ^3/uL (0-1.3) Eosinophils # (Auto) 0.2 10 ^3/uL (0-0.8) Basophils # (Auto) 0 10 ^3/uL (0-0.2) Nucleated Red Blood Cells 0.1 % Sodium Level 143 mmol/L (136-145) Potassium Level 3.7 mmol/L (3.5-5.1) Chloride Level 107 mmol/L (98-107) Carbon Dioxide Level 25 mmol/L (20-31) Anion Gap 11 (5-15) Blood Urea Nitrogen 10 mg/dL (9-23) Creatinine 0.63 mg/dL (0.550-1.02) Glomerular Filtration Rate Calc 93 mL/min (>90) BUN/Creatinine Ratio 15.9 (10.0-20.0) Serum Glucose 74 mg/dL (74-106) Calcium Level 9.5 mg/dL (8.7-10.4) Total Bilirubin 0.8 mg/dL (0.2-1.0) Aspartate Amino Transferase (AST) 16 U/L (13-40) Alanine Aminotransferase (ALT) 9 U/L (7-40) Alkaline Phosphatase 51 U/L (46-116) Total Protein 5.6 g/dL (5.7-8.2) Albumin 3.6 g/dL (3.2-4.8) Lactic Acid Level 1.6 mmol/L (0.4-2.0) Urine Color Colorless (Yellow) Urine Clarity Turbid (Clear) Urine pH 6.0 (5.0-9.0) Urine Specific Simpson 1.009 (1.001-1.035) Urine Protein Trace (Negative) Urine Ketones Trace (Negative) Urine Blood Negative /uL (Negative) Urine Nitrite 2+ (Negative) Urine Bilirubin Negative (Negative) Urine Urobilinogen Normal mg/dL (Negative) Urine Leukocyte Esterase 1+ /uL (Negative) Urine RBC 1 /hpf (0 - 4) Urine WBC 43 /hpf (0 - 5) Urine Squamous Epithelial Cells Many /hpf (<5) Urine Amorphous Crystals Few /hpf (None Seen) Urine Bacteria Few /hpf (None Seen) Urine Glucose Normal mg/dL (Normal) Test 08/10/24 21:00 Lipase 43 U/L (12-53) Other Laboratory Tests 08/13/24 05:54 Brief Hx & Hospital Course: 74-year-old female with multiple prior abdominal surgery for bladder reconstruction, nephrectomy admitted for abdominal pain, found to have SBO. Bowel series done, after Gastrografin patient had bowel movement, continue with MiraLax with significant improvement, abdominal pain resolved. Able to tolerate oral intake. Patient to follow up outpatient with GI and surgery. Informed patient to return if symptoms return Condition at Discharge: Good Final Diagnosis/Problems List SBO likely adhesions from prior surgery, resolved with gastrografin Discharge Disposition: Home Discharge Instruct/Medications Diet: See Comment Diet comment: high fiber Activity: No Restrictions, As Tolerated Follow Up/Referral: outpatient GI, surgery Medications: miralax [id number] Discharge Statement: "Patient was advised to return to the ER or call 911 if any headaches, dizziness, shortness of breath, chest pain, abdominal pain, bleeding, fevers, or worsening of medical condition. Patient was counseled about treatment plan, medications, possible side effects, patientverbalized understanding. All questions were answered to the best of my ability. This discharge took greater then 30 minutes in planning, reviewing documentation, counseling the patient, and discussing with other team members." ASSESSMENT ASSESSMENT Assessment SBO likely adhesions from prior surgery, resolved with gastrografin Status post nephrectomy Status post bowel reconstruction Urinary retention requiring self catheterization Lactic acidosis, resolved HAGMA, resolved Hypokalemia, resolved Hypertension controlled UTI Date of Service: Aug 14, 2024 Billing Provider: MIGUEL RAMIREZ MD Common Visit Codes: [id number] DISCH DAY >30min MIGUEL RAMIREZ MD Aug 14, 2024 09:08
[2024-08-14 10:54] VITALS: TEMP 36.7
== END 2024-08-14 12:10 | disposition home or self-care (01) | DRG 389 ==
LOC: ER 20:18 → EDBD 20:18 → OVERFLOW 08-11 00:32 → EAST 08-11 18:48
PROVIDERS: ADMIT Student in an Organized Health Care Education/Training Program; ATTEND Student in an Organized Health Care Education/Training Program
DX: K56.50 Intestinal adhesions [bands], unspecified as to partial versus complete obstruction (principal); E87.20 Acidosis, unspecified; N39.0 Urinary tract infection, site not specified; E87.6 Hypokalemia; I10 Essential (primary) hypertension; E03.9 Hypothyroidism, unspecified; E78.5 Hyperlipidemia, unspecified; Z88.1 Allergy status to other antibiotic agents; Z90.5 Acquired absence of kidney; Z79.899 Other long term (current) drug therapy
CPT/HCPCS: 36415; 71045; 74176; 74177; 74250; 80048; 80053; 81001; 83605; 83690; 85025; 93005; G0378; J1956; J2405; J3480; J3490